=== PATIENT | male | born 1940 | race Caucasian/White ===

== ENCOUNTER → 2019-04-28 09:28 | Outpatient (CLI) | payer MEDICARE, BC ==
[2015-06-02 02:09] VITALS: BMI 21.7
[~2019-04-28 09:28] MED LIST: ASPIRIN81 MG PO; CORDARONE200 MG PO; HEMOCYTE PLUS C1 CAP PO; HYDROCODONE-APA1 TAB PO; MULTIPLE VITAMI1 TA1 PO; PRAVACHOL20 MG PO; PRILOSEC20 MG PO
== END | disposition home or self-care (01) ==
LOC: D.HCCECHO 09:28
PROVIDERS: ATTEND Internal Medicine Interventional Cardiology
DX: I25.10 Atherosclerotic heart disease of native coronary artery without angina pectoris (principal)